=== PATIENT | female | born 1930 | race Hispanic/Latino ===

== ENCOUNTER 2017-11-27 00:36 | Observation (INO) | payer MEDICARE ==
[2017-11-27 00:48] VITALS: BMI 25.4
[2017-11-27] MEDS ORDERED: Morphine 2 mg/ml ISec IVP STA (01:33)
--- NOTE | 2017-11-27 01:35 | ED PDOC ---
Arrival/HPI - General Chief Complaint: Abdominal Pain Time Seen by Provider: 11/27/17 00:50 Historian: Patient - History of Present Illness Narrative History of Present Illness (Text): 11/27/17 01:30 Jim Gould is an 87 year old female, whose past medical history includes hypertension, who presents to the ED brought in by EMS accompanied by relative complaining of chest pain. Relative reports patient has been experiencing intermittent left-sided chest pain radiating down her left arm for the past 3 days. Patient denies any shortness of breath, abdominal pain, nausea, vomiting, headache, dizziness, or any other complaints. PMD: Dr. Moore Time/Duration: 1-3 hours Symptom Onset: Gradual Symptom Course: Unchanged, Intermittent Activities at Onset: Light Context: Home Past Medical History - Provider Review Nursing Documentation Reviewed: Yes - Infectious Disease Hx of Infectious Diseases: None - Tetanus Immunization Tetanus Immunization: Unknown - Cardiac Hx Hypertension: Yes - Pulmonary Hx Respiratory Disorders: No - Neurological Hx Neurological Disorder: No - HEENT Hx HEENT Disorder: No - Renal Hx Renal Disorder: No - Endocrine/Metabolic Hx Endocrine Disorders: No - Hematological/Oncological Hx Blood Disorders: No - Integumentary Hx Dermatological Disorder: No - Musculoskeletal/Rheumatological Hx Falls: Yes (Cannot recall how long ago) - Gastrointestinal Hx Gastrointestinal Disorders: No - Genitourinary/Gynecological Hx Genitourinary Disorders: No - Psychiatric Hx Psychophysiologic Disorder: No Hx Substance Use: No - Anesthesia Hx Anesthesia: No Family/Social History - Physician Review Nursing Documentation Reviewed: Yes Family/Social History: Unknown Family HX Smoking Status: Never Smoked Hx Alcohol Use: No Hx Substance Use: No Allergies/Home Meds Allergies/Adverse Reactions: Allergies No Known Allergies Allergy (Verified 06/11/15 21:17) Home Medications: Home Meds Medication Instructions Recorded Confirmed Aspirin [Aspirin Chewable] 81 mg PO DAILY 11/27/17 11/27/17 Metoprolol Tartrate [Lopressor] 100 mg PO BID 11/27/17 11/27/17 Multivitamin [Daily Olvin] 1 tab PO DAILY 11/27/17 11/27/17 Review of Systems - Physician Review All systems were reviewed & negative as marked: Yes - Review of Systems Constitutional: Normal. absent: Fevers Eyes: Normal ENT: Normal Respiratory: Normal. absent: SOB, Cough Cardiovascular: Chest Pain Gastrointestinal: Normal. absent: Abdominal Pain, Diarrhea, Nausea, Vomiting Genitourinary Female: Normal. absent: Dysuria, Frequency, Hematuria, Urine Output Changes Musculoskeletal: Normal. absent: Back Pain, Neck Pain Skin: Normal. absent: Rash Neurological: Normal. absent: Headache, Dizziness Endocrine: Normal Hemo/Lymphatic: Normal Psychiatric: Normal Physical Exam Vital Signs Reviewed: Yes Vital Signs Temp Pulse Resp BP Pulse Ox 11/27/17 00:47 98.3 F 78 18 147/75 100 Temperature: Afebrile Blood Pressure: Normal Pulse: Regular Respiratory Rate: Normal Appearance: Positive for: Well-Appearing, Non-Toxic, Comfortable Pain Distress: None Mental Status: Positive for: Alert and Oriented X 3 - Systems Exam Head: Present: Atraumatic, Normocephalic Pupils: Present: PERRL Extroacular Muscles: Present: EOMI Conjunctiva: Present: Normal Mouth: Present: Moist Mucous Membranes Neck: Present: Normal Range of Motion. No: Meningeal Signs, MIDLINE TENDERNESS , Paraspinal Tenderness Respiratory/Chest: Present: Clear to Auscultation, Good Air Exchange. No: Respiratory Distress, Accessory Muscle Use Cardiovascular: Present: Regular Rate and Rhythm, Normal S1, S2. No: Murmurs Abdomen: No: Tenderness, Distention, Peritoneal Signs Back: Present: Normal Inspection. No: CVA Tenderness, Midline Tenderness, Paraspinal Tenderness Upper Extremity: Present: Normal Inspection. No: Cyanosis, Edema Lower Extremity: Present: Normal Inspection. No: Edema Neurological: Present: GCS=15, CN II-XII Intact, Speech Normal Skin: Present: Warm, Dry, Normal Color. No: Rashes Psychiatric: Present: Alert, Oriented x 3, Normal Insight, Normal Concentration Medical Decision Making ED Course and Treatment: 11/27/17 01:30 Impression: 87 year old female c/o left-sided chest pain radiating to left shoulder. Plan: -- EKG -- CXR -- Labs, cardiac enzymes, lipase -- UA -- Aspirin -- Morphine -- Reassess and disposition Prior Visits: Notes and results from previous visits were reviewed. Progress Notes: Reviewed EKG, NSR at [address]-segment elevations or depressions, no T-wave inversions, normal intervals. 11/27/17 01:[address] Moore, who requests pt go to hospitalist service. 11/27/17 03:07 CXR reviewed, shows no acute processes. 11/27/17 03:43 Case discussed with medical officer psychiatry home security professional, who is aware and agrees with plan. 11/27/17 03:[address] Regalado, who is aware and agrees with plan. Accepts pt in to hospitalist service. Pt will go to Telemetry observation for chest pain. - Lab Interpretations Lab Results: 11/27/17 01:48 11/27/17 01:48 Lab Results 11/27/17 01:48: WBC 9.9 D, RBC 4.31, Hgb 12.4, Hct 36.7, MCV 85.2, MCH 28.8, MCHC 33.8, RDW 13.0, Plt Count 291, MPV 8.5 11/27/17 01:48: PT 10.1, INR 0.89, APTT 27.1 11/27/17 01:48: Sodium 143, Potassium 5.5 H, Chloride 105, Carbon Dioxide 22, Anion Gap 21 H, BUN 21, Creatinine 0.6 L, Est GFR ( Amer) > 60, Est GFR ( Non-Af Amer) > 60, Random Glucose 121 H, Calcium 9.6, Total Bilirubin 0.9, AST 42 H, ALT 33, Alkaline Phosphatase 64, Lactate Dehydrogenase 788 H, Total Creatine Kinase 62, Troponin I < 0.01, Total Protein 8.8 H, Albumin 4.7, Globulin 4.1, Albumin/Globulin Ratio 1.1, Lipase 352 H I have reviewed the lab results: Yes - RAD Interpretation Radiology Orders: 11/27/17 01:31 CHEST PORTABLE [RAD] Stat Sports Marketing Specialist: ED Physician - EKG Interpretation Interpreted by ED Physician: Yes Type: 12 lead EKG - Medication Orders Current Medication Orders: Discontinued Medications Aspirin (Aspirin) 325 mg PO ONCE STA Stop: 11/27/17 01:34 Last Admin: 11/27/17 01:52 Dose: 325 mg Morphine Sulfate (Morphine) 2 mg IVP STAT STA Stop: 11/27/17 01:34 Last Admin: 11/27/17 01:52 Dose: 2 mg MAR Pain Assessment Document 11/27/17 01:52 CNR (Rec: 11/27/17 01:52 CNR [id number]) Pain Reassessment Is this a pain reassessment? No IVP Administration Document 11/27/17 01:52 CNR (Rec: 11/27/17 01:52 CNR [id number]) Charges for Administration # of IVP Administrations 1 Sodium Polystyrene Sulfonate (Kayexalate Susp) 30 gm PO ONCE ONE Stop: 11/27/17 03:30 Last Admin: 11/27/17 03:42 Dose: 30 gm - Scribe Statement The provider has reviewed the documentation as recorded by the Scribalysha Kahn All medical record entries made by the Bellaibalysha were at my direction and personally dictated by me. I have reviewed the chart and agree that the record accurately reflects my personal performance of the history, physical exam, medical decision making, and the department course for this patient. I have also personally directed, reviewed, and agree with the discharge instructions and disposition. Disposition/Present on Arrival - Present on Arrival Any Indicators Present on Arrival: No History of DVT/PE: No History of Uncontrolled Diabetes: No Urinary Catheter: No History of Decub. Ulcer: No History Surgical Site Infection Following: None - Disposition Have Diagnosis and Disposition been Completed?: Yes Diagnosis: Chest pain Disposition: HOSPITALIZED Disposition Time: 03:42 Patient Plan: Observation Patient Problems: Current Active Problems Problem Status Onset Chest pain Acute Condition: STABLE Discharge Instructions (ExitCare): Chest Pain (ED) Referrals: Napoleon Moore MD [Primary Care Provider] - Follow up with primary Forms: [employer] (Syrian)
[2017-11-27 02:01] LABS: HEMOGLOBIN 12.4 g/dL (12.0-16.0); MEAN CELL VOLUME 85.2 fl (80.0-105.0); MEAN CORPUSCULAR HEMOGLOBIN 28.8 pg (25.0-35.0); MEAN CORPUSCULAR HGB CONC 33.8 g/dl (31.0-37.0); MEAN PLATELET VOLUME 8.5 fl (7.0-11.0); RBC 4.31 10^6/uL (3.5-6.1); WHITE BLOOD COUNT 9.9 10^3/ul (4.5-11.0)
[2017-11-27 02:10] LABS: CALCIUM 9.6 mg/dL (8.4-10.5); GFR NON-AFRICAN AMERICAN > 60; LIPASE 352 U/L (23-300)
[2017-11-27 02:11] LABS: INR 0.89; PARTIAL THROMBOPLASTIN TIME 27.1 Seconds (25.1-36.5); PROTHROMBIN TIME 10.1 SECONDS (9.4-12.5)
[2017-11-27 03:19] LABS: ALB/GLOB RATIO 1.1 (1.1-1.8); ALBUMIN 4.7 g/dL (3.0-4.8); ALT/SGPT 33 U/L (7-56); AST/SGOT 42 U/L (14-36); BLOOD UREA NITROGEN 21 mg/dL (7-21); TROPONIN I < 0.01 ng/mL
[2017-11-27] MEDS ORDERED: Sod Polystyrene Sulf 15 gm/60 ml Susp PO ONE (03:29)
--- NOTE | 2017-11-27 04:37 | CP.PCM.HP ---
<PoloSundeep - Last Filed: 11/27/17 05:24> History of Present Illness - History of Present Illness History of Present Illness: Sundeep Cuellar, PGY-1, Internal Medicine History and Physical for Dr. Regalado CC: chest pain 87 year old female with past medical history of pyelonephritis and hypertension presents with chest pain that started at 19:00 on 11/26. She was not able to describe the pain and described it as a "normal" pain. Pain radiates to the left shoulder. Patient reports constipation. She has one bowel movement every 2 to 3 days. Last bowel movement was 2 days ago. Patient denies nausea, vomiting, diaphoresis, and shortness of breath. Patient also denies dizziness, headache, fever, heart palpitations, abdominal pain, diarrhea, dysuria, hematuria, numbness/tingling, weakness. 12-point ROS was negative except for what was listed above. PMH: as listed above PSH: denies Allergies: NKDA FMHx: mother: CAD SHx: denies smoking, alcohol, recreational drug use. PMD: Dr. Moore Pharmacy: [facility] Insurance: Medicare Present on Admission - Present on Admission Any Indicators Present on Admission: No History of DVT/PE: No History of Uncontrolled Diabetes: No Review of Systems - Constitutional Constitutional: absent: Anorexia, Chills, Fever, Weakness - EENT Eyes: absent: Blurred Vision Ears: absent: Decreased Hearing Nose/Mouth/Throat: absent: Sore Throat - Cardiovascular Cardiovascular: Chest Pain, Chest Pain at Rest, Pain Radiating to Arm/Neck/Jaw ( arm). absent: Chest Pain with Activity, Diaphoresis, Dyspnea, Dyspnea on Exertion, Irregular Heart Rhythm, Palpitations - Respiratory Respiratory: absent: Cough, Dyspnea, Wheezing - Gastrointestinal Gastrointestinal: Constipation. absent: Abdominal Pain, Diarrhea, Nausea, Vomiting - Genitourinary Genitourinary: absent: Dysuria, Hematuria - Musculoskeletal Musculoskeletal: absent: Abnormal Gait, Back Pain - Neurological Neurological: absent: Numbness, Headaches, Tingling - Psychiatric Psychiatric: absent: Anxiety, Depression - Endocrine Endocrine: absent: Fatigue Past Patient History - Infectious Disease Hx of Infectious Diseases: None - Tetanus Immunizations Tetanus Immunization: Unknown - Past Medical History & Family History Past Medical History?: Yes - Past Social History Smoking Status: Never Smoked - CARDIAC Hx Hypertension: Yes - PULMONARY Hx Respiratory Disorders: No - NEUROLOGICAL Hx Neurological Disorder: No - HEENT Hx HEENT Problems: No - RENAL Hx Chronic Kidney Disease: No - ENDOCRINE/METABOLIC Hx Endocrine Disorders: No - HEMATOLOGICAL/ONCOLOGICAL Hx Blood Disorders: No - INTEGUMENTARY Hx Dermatological Problems: No - MUSCULOSKELETAL/RHEUMATOLOGICAL Hx Falls: Yes (Cannot recall how long ago) - GASTROINTESTINAL Hx Gastrointestinal Disorders: No - GENITOURINARY/GYNECOLOGICAL Hx Genitourinary Disorders: No - PSYCHIATRIC Hx Psychophysiologic Disorder: No Hx Substance Use: No - SURGICAL HISTORY Hx Surgeries: No - ANESTHESIA Hx Anesthesia: No Meds Allergies/Adverse Reactions: Allergies Allergy/AdvReac Type Severity Reaction Status Date / Time No Known Allergies Allergy Verified 06/11/15 21:17 Physical Exam - Constitutional Appears: Well, Non-toxic, No Acute Distress - Head Exam Head Exam: ATRAUMATIC, NORMAL INSPECTION, NORMOCEPHALIC - Eye Exam Eye Exam: EOMI, PERRL - ENT Exam ENT Exam: Mucous Membranes Moist Additional comments: edentulous - Respiratory Exam Respiratory Exam: Chest Wall Tenderness (left sided pain reproducible to palpation), Clear to Auscultation Bilateral, NORMAL BREATHING PATTERN - Cardiovascular Exam Cardiovascular Exam: REGULAR RHYTHM, RRR - GI/Abdominal Exam GI & Abdominal Exam: Normal Bowel Sounds, Soft. absent: Tenderness - Extremities Exam Extremities exam: Positive for: full ROM, normal inspection - Neurological Exam Neurological exam: Alert, CN II-XII Intact, Oriented x3 - Psychiatric Exam Psychiatric exam: Normal Affect, Normal Mood - Skin Skin Exam: Dry, Intact, Normal Color, Warm Results - Vital Signs Recent Vital Signs: Last Vital Signs Temp 98.3 F 11/27/17 00:47 Pulse 78 11/27/17 00:47 Resp 18 11/27/17 00:47 BP 147/75 11/27/17 00:47 Pulse Ox 100 11/27/17 00:47 - Labs Result Diagrams: 11/27/17 01:48 11/27/17 01:48 Labs: Laboratory Results - last 24 hr 11/27/17 11/27/17 11/27/17 01:48 01:48 01:48 WBC 9.9 D RBC 4.31 Hgb 12.4 Hct 36.7 MCV 85.2 MCH 28.8 MCHC 33.8 RDW 13.0 Plt Count 291 MPV 8.5 PT 10.1 INR 0.89 APTT 27.1 Sodium 143 Potassium 5.5 H Chloride 105 Carbon Dioxide 22 Anion Gap 21 H BUN 21 Creatinine 0.6 L Est GFR ( Amer) > 60 Est GFR (Non-Af Amer) > 60 Random Glucose 121 H Calcium 9.6 Total Bilirubin 0.9 AST 42 H ALT 33 Alkaline Phosphatase 64 Lactate Dehydrogenase 788 H Total Creatine Kinase 62 Troponin I < 0.01 Total Protein 8.8 H Albumin 4.7 Globulin 4.1 Albumin/Globulin Ratio 1.1 Lipase 352 H - Impressions Impression: Normal sinus rhythm Vent rate: 68 RI: 120 QRS: 66 QTc: 399 Assessment & Plan - Assessment and Plan (Free Text) Assessment: 87 year old female with past medical history of pyelonephritis and hypertension presents with chest pain that started at 19:00 on 11/26. She was not able to describe the pain and described it as a "normal" pain. Patient will be admitted for atypical chest pain 2/2 to costochondritis vs. ACS. Plan: Atypical chest pain 2/2 to costochondritis vs. ACS -EKG: normal sinus rhythm with HR: 68 -Troponin: <0.01. Follow up with two more troponins. -Repeat EKG in the AM. -Aspirin 81 mg daily. -Continue home metoprolol. Hyperkalemia -K: 5.5 -EKG: shows no peaked T waves -Kayexelate given in the ER -Continue to monitor. History of Hypertension -BP on presentation: 142/74. -Continue home metoprolol. -Continue to monitor. Elevated Lipase -Lipase: 352 -Due to mild elevation, and symptoms not artist's representative of pancreatitis, will hold off on CT of abdomen. -Continue to monitor. Repeat in AM. Elevated LDH -LDH: 788 -Continue to monitor. Repeat in AM. DVT prophylaxis: SCD GI prophylaxis: protonix 40 mg daily Patient seen and examined with Dr. Regalado. - Date & Time Date: 11/27/17 Time: 04:46 <Shi Regalado - Last Filed: 11/27/17 05:30> Results - Vital Signs Recent Vital Signs: Last Vital Signs Temp 98.3 F 11/27/17 00:47 Pulse 79 11/27/17 05:22 Resp 17 11/27/17 05:22 BP 132/72 11/27/17 05:22 Pulse Ox 99 11/27/17 05:22 - Labs Result Diagrams: 11/27/17 01:48 11/27/17 01:48 Attending/Attestation - Attestation I have personally seen and examined this patient.: Yes I have fully participated in the care of the patient.: Yes I have reviewed all pertinent clinical information: Yes Notes (Text): 11/27/17 05:25 Pt seen with resident by the bedside. Case discussed in detail. Agree with physical findings,assessment and plan of treatment.
[2017-11-27 05:06] LABS: URINE BILIRUBIN NEGATIVE (NEGATIVE); URINE BLOOD SMALL (NEGATIVE); URINE GLUCOSE (UA) NEGATIVE (NEGATIVE); URINE LEUKOCYTE ESTERASE LARGE Leu/uL (NEGATIVE); URINE PROTEIN NEGATIVE mg/dL (<30 mg/dL); URINE UROBILINOGEN 0.2 E.U./dL (<1 E.U./dL)
[2017-11-27 05:35] LABS: URINE APPEARANCE SL CLOUDY (CLEAR); URINE COLOR YELLOW (YELLOW)
[2017-11-27 05:37] LABS: URINE BACTERIA MOD (NEG); URINE EPITHELIAL CELLS 0 - 2 /hpf (0-5)
[2017-11-27 06:03] VITALS: O2SAT 98
[2017-11-27 08:25] LABS: BASO # 0.03 K/mm3 (0.0-2.0); BASO % 0.3 % (0.0-3.0); EOS # 0.1 (0.0-0.7); EOS % 0.7 % (1.5-5.0); GRAN # 6.06 (1.4-6.5); GRAN % 68.8 % (50.0-68.0); HEMOGLOBIN 13.1 g/dL (12.0-16.0); LYMPH # 2.2 (1.2-3.4); LYMPH % 24.8 % (22.0-35.0); MEAN CELL VOLUME 84.5 fl (80.0-105.0); MEAN CORPUSCULAR HEMOGLOBIN 28.5 pg (25.0-35.0); MEAN CORPUSCULAR HGB CONC 33.8 g/dl (31.0-37.0); MEAN PLATELET VOLUME 8.5 fl (7.0-11.0); MONO # 0.5 (0.1-0.6); MONO % 5.4 % (1.0-6.0); RBC 4.59 10^6/uL (3.5-6.1); RED CELL DISTRIBUTION WIDTH 13.2 % (11.5-14.5); WHITE BLOOD COUNT 8.8 10^3/ul (4.5-11.0)
[2017-11-27 08:39] LABS: ALB/GLOB RATIO 1.2 (1.1-1.8); ALBUMIN 4.6 g/dL (3.0-4.8); ALT/SGPT 44 U/L (7-56); AST/SGOT 33 U/L (14-36); BLOOD UREA NITROGEN 19 mg/dL (7-21); CALCIUM 9.9 mg/dL (8.4-10.5); GFR NON-AFRICAN AMERICAN > 60; HDL CHOLESTEROL 41 mg/dL (29-60); LIPASE 151 U/L (23-300)
[2017-11-27 08:47] LABS: LDL CHOLESTEROL 186 mg/dL (0-129)
[2017-11-27] MEDS ORDERED: Multivitamin Therapeutic Tab PO SCH (10:00)
--- NOTE | 2017-11-27 10:33 | RAD ---
Date of service: 11/27/2017 HISTORY: Chest pain COMPARISON: No prior. FINDINGS: LUNGS: The lungs are well inflated and clear. PLEURA: No significant pleural effusion identified, no pneumothorax apparent. CARDIOVASCULAR: Normal. OSSEOUS STRUCTURES: No significant abnormalities. VISUALIZED UPPER ABDOMEN: Normal. OTHER FINDINGS: None. IMPRESSION: No active pulmonary disease.
--- NOTE | 2017-11-27 10:56 | CP.PCM.CON ---
History of Present Illness - History of Present Illness History of Present Illness: Awake,Alert,denies chest pain now Reason for consultation: Cardiac evaluation of chest pain radiating to left arm. History of hypertension and pyelonephritis Brief history of present illness: An 87 year old female who came in to the ER due to chestp ain radiating to left arm started yesterday. Denies shortness of breath. Complaints of constipation. History of hypertension and pyelonephritis/ urinary tract infection. Denies any other medical problems Seen and examined by me and Dr. Ceron Review of Systems - Review of Systems All systems: reviewed and no additional remarkable complaints except Review of Systems: per HPI Past Patient History - Infectious Disease Hx of Infectious Diseases: None - Tetanus Immunizations Tetanus Immunization: Unknown - Past Medical History & Family History Past Medical History?: Yes - Past Social History Smoking Status: Never Smoked - CARDIAC Hx Hypertension: Yes - PULMONARY Hx Respiratory Disorders: No - NEUROLOGICAL Hx Neurological Disorder: No - HEENT Hx HEENT Problems: No - RENAL Hx Chronic Kidney Disease: No - ENDOCRINE/METABOLIC Hx Endocrine Disorders: No - HEMATOLOGICAL/ONCOLOGICAL Hx Blood Disorders: No - INTEGUMENTARY Hx Dermatological Problems: No - MUSCULOSKELETAL/RHEUMATOLOGICAL Hx Falls: No (does not have a fall recently) - GASTROINTESTINAL Hx Gastrointestinal Disorders: No - GENITOURINARY/GYNECOLOGICAL Hx Genitourinary Disorders: No Hx Urinary Tract Infection: Yes Other/Comment: pyelonephritis - PSYCHIATRIC Hx Psychophysiologic Disorder: No - SURGICAL HISTORY Hx Surgeries: No - ANESTHESIA Hx Anesthesia: No Meds Allergies/Adverse Reactions: Allergies Allergy/AdvReac Type Severity Reaction Status Date / Time No Known Allergies Allergy Verified 06/11/15 21:17 - Medications Medications: Current Medications Aspirin (Aspirin Chewable) 81 mg PO DAILY [facility] Last Admin: 11/27/17 09:02 Dose: 81 mg Metoprolol Tartrate (Lopressor) 100 mg PO BRKDIN [facility] Last Admin: 11/27/17 09:01 Dose: 100 mg Multivitamins (Thera Tab) 1 tab PO DAILY [facility] Last Admin: 11/27/17 09:02 Dose: 1 tab Physical Exam - Constitutional Appears: No Acute Distress - Eye Exam Eye Exam: Normal appearance - ENT Exam ENT Exam: Mucous Membranes Moist - Respiratory Exam Respiratory Exam: Clear to Auscultation Bilateral, NORMAL BREATHING PATTERN - Cardiovascular Exam Cardiovascular Exam: REGULAR RHYTHM, +S1, +S2 - GI/Abdominal Exam GI & Abdominal Exam: Normal Bowel Sounds, Soft - Extremities Exam Extremities exam: Positive for: normal capillary refill - Neurological Exam Neurological exam: Alert, Oriented x3 - Psychiatric Exam Psychiatric exam: Normal Affect - Skin Skin Exam: Intact, Warm Results - Vital Signs Recent Vital Signs: Last Vital Signs Temp 97.5 F L 11/27/17 06:00 Pulse 65 11/27/17 10:00 Resp 20 11/27/17 06:00 BP 114/62 11/27/17 09:01 Pulse Ox 98 11/27/17 06:00 - Labs Result Diagrams: 11/27/17 08:00 11/27/17 08:00 Labs: Laboratory Results - last 24 hr 11/27/17 11/27/17 11/27/17 03:58 08:00 08:00 WBC 8.8 RBC 4.59 Hgb 13.1 Hct 38.8 MCV 84.5 MCH 28.5 MCHC 33.8 RDW 13.2 Plt Count 257 MPV 8.5 Gran % 68.8 H Lymph % (Auto) 24.8 [place] % (Auto) 5.4 Eos % (Auto) 0.7 L Baso % (Auto) 0.3 Gran # 6.06 Lymph # (Auto) 2.2 [place] # (Auto) 0.5 Eos # (Auto) 0.1 Baso # (Auto) 0.03 Sodium Potassium Chloride Carbon Dioxide Anion Gap BUN Creatinine Est GFR ( Amer) Est GFR (Non-Af Amer) Random Glucose Calcium Phosphorus Magnesium Total Bilirubin AST ALT Alkaline Phosphatase Lactate Dehydrogenase Total Protein Albumin Globulin Albumin/Globulin Ratio Triglycerides Cholesterol LDL Cholesterol Direct HDL Cholesterol Lipase TSH 3rd Generation 2.38 Urine Color Yellow Urine Appearance Sl cloudy Urine pH 6.0 Ur Specific [employer] 1.020 Urine Protein Negative Urine Glucose (UA) Negative Urine Ketones Negative Urine Blood Small H Urine Nitrate Negative Urine Bilirubin Negative Urine Urobilinogen 0.2 Ur Leukocyte Esterase Large H Urine RBC 1 - 3 Urine WBC 2 - 5 Ur Epithelial Cells 0 - 2 Urine Bacteria Mod 11/27/17 08:00 WBC RBC Hgb Hct MCV MCH MCHC RDW Plt Count MPV Gran % Lymph % (Auto) [place] % (Auto) Eos % (Auto) Baso % (Auto) Gran # Lymph # (Auto) [place] # (Auto) Eos # (Auto) Baso # (Auto) Sodium 144 Potassium 3.9 Chloride 107 Carbon Dioxide 23 Anion Gap 19 BUN 19 Creatinine 0.6 L Est GFR ( Amer) > 60 Est GFR (Non-Af Amer) > 60 Random Glucose 124 H Calcium 9.9 Phosphorus 3.4 Magnesium 2.2 Total Bilirubin 0.5 AST 33 ALT 44 Alkaline Phosphatase 69 Lactate Dehydrogenase 450 Total Protein 8.4 H Albumin 4.6 Globulin 3.8 Albumin/Globulin Ratio 1.2 Triglycerides 338 H Cholesterol 296 H LDL Cholesterol Direct 186 H HDL Cholesterol 41 Lipase 151 TSH 3rd Generation Urine Color Urine Appearance Urine pH Ur Specific [employer] Urine Protein Urine Glucose (UA) Urine Ketones Urine Blood Urine Nitrate Urine Bilirubin Urine Urobilinogen Ur Leukocyte Esterase Urine RBC Urine WBC Ur Epithelial Cells Urine Bacteria Assessment & Plan - Assessment and Plan (Free Text) Assessment: An 87 year old female who came in to the ER due to chestp ain radiating to left arm started yesterday. Denies shortness of breath. Complaints of constipation. History of hypertension and pyelonephritis/urinary tract infection. Denies any other medical problems. Denies chest pain now. Troponin normal,Chest X ray normal,EKG normal sinus rhythm.no ischemia,No previous cardiac work up At [facility]. Atypical chest pain, no evidence of ischemia. Plan: Denies chest pain pain Atypical chest pain No evidence of ischemia Hear rate and blood pressure controlled Continue ASA 81 mg daily,Lopressor 100 mg BID Out patient ECHO and Stress Test Continue current treatment Continue current medications Further recommendations during hospital course Will follow up Plan and treatment discussed with Dr. Ceron Thank you Dr. Bagley for the opportunity in taking care of Ms. Jim Gould - Date & Time Date: 11/27/17 Time: 11:20
[2017-11-27 11:54] VITALS: BP 127/60; RESP 21; TEMP 98.2
--- NOTE | 2017-11-27 12:27 | CARD ---
APPROVED REPORT Date of service: 11/27/2017 EKG Measurement Heart [id number] <Conclusion> Sinus bradycardia Otherwise normal ECG
--- NOTE | 2017-11-27 12:52 | CARD ---
APPROVED REPORT Date of service: 11/27/2017 EKG Measurement Heart [id number] <Conclusion> Normal sinus rhythm Normal ECG
--- NOTE | 2017-11-27 14:40 | CP.PCM.DIS ---
<Lewis Elaine - Last Filed: 11/27/17 14:33> Provider - Provider Date of Admission: 11/27/17 03:47 Attending physician: Monico Bagley MD Primary care physician: Napoleon Moore MD Consults: licensed prosthetist: Dr Ceron Time Spent in preparation of Discharge (in minutes): 34 Diagnosis - Discharge Diagnosis (1) Chest pain Status: Resolved Priority: High Hospital Course - Lab Results Lab Results: Most Recent Lab Values WBC 8.8 10^3/ul (4.5-11.0) 11/27/17 08:00 RBC 4.59 10^6/uL (3.5-6.1) 11/27/17 08:00 Hgb 13.1 g/dL (12.0-16.0) 11/27/17 08:00 Hct 38.8 % (36.0-48.0) 11/27/17 08:00 MCV 84.5 fl (80.0-105.0) 11/27/17 08:00 MCH 28.5 pg (25.0-35.0) 11/27/17 08:00 MCHC 33.8 g/dl (31.0-37.0) 11/27/17 08:00 RDW 13.2 % (11.5-14.5) 11/27/17 08:00 Plt Count 257 10^3/uL (120.0-450.0) 11/27/17 08:00 MPV 8.5 fl (7.0-11.0) 11/27/17 08:00 Gran % 68.8 % (50.0-68.0) H 11/27/17 08:00 Lymph % (Auto) 24.8 % (22.0-35.0) 11/27/17 08:00 Andrews % (Auto) 5.4 % (1.0-6.0) 11/27/17 08:00 Eos % (Auto) 0.7 % (1.5-5.0) L 11/27/17 08:00 Baso % (Auto) 0.3 % (0.0-3.0) 11/27/17 08:00 Gran # 6.06 (1.4-6.5) 11/27/17 08:00 Lymph # (Auto) 2.2 (1.2-3.4) 11/27/17 08:00 Andrews # (Auto) 0.5 (0.1-0.6) 11/27/17 08:00 Eos # (Auto) 0.1 (0.0-0.7) 11/27/17 08:00 Baso # (Auto) 0.03 K/mm3 (0.0-2.0) 11/27/17 08:00 PT 10.1 SECONDS (9.4-12.5) 11/27/17 01:48 INR 0.89 11/27/17 01:48 APTT 27.1 Seconds (25.1-36.5) 11/27/17 01:48 Sodium 144 mmol/L (132-148) 11/27/17 08:00 Potassium 3.9 mmol/L (3.6-5.0) 11/27/17 08:00 Chloride 107 mmol/L (98-107) 11/27/17 08:00 Carbon Dioxide 23 mmol/L (21-33) 11/27/17 08:00 Anion Gap 19 (10-20) 11/27/17 08:00 BUN 19 mg/dL (7-21) 11/27/17 08:00 Creatinine 0.6 mg/dl (0.7-1.2) L 11/27/17 08:00 Est GFR ( Amer) > 60 11/27/17 08:00 Est GFR (Non-Af Amer) > 60 11/27/17 08:00 Random Glucose 124 mg/dL (70-110) H 11/27/17 08:00 Calcium 9.9 mg/dL (8.4-10.5) 11/27/17 08:00 Phosphorus 3.4 mg/dL (2.5-4.5) 11/27/17 08:00 Magnesium 2.2 mg/dL (1.7-2.2) 11/27/17 08:00 Total Bilirubin 0.5 mg/dL (0.2-1.3) 11/27/17 08:00 AST 33 U/L (14-36) 11/27/17 08:00 ALT 44 U/L (7-56) 11/27/17 08:00 Alkaline Phosphatase 69 U/L (38-126) 11/27/17 08:00 Lactate Dehydrogenase 450 U/L (333-699) 11/27/17 08:00 Total Creatine Kinase 62 U/L (35-230) 11/27/17 01:48 Troponin I < 0.01 ng/mL 11/27/17 01:48 Total Protein 8.4 g/dL (5.8-8.3) H 11/27/17 08:00 Albumin 4.6 g/dL (3.0-4.8) 11/27/17 08:00 Globulin 3.8 gm/dL 11/27/17 08:00 Albumin/Globulin Ratio 1.2 (1.1-1.8) 11/27/17 08:00 Triglycerides 338 mg/dL (35-160) H 11/27/17 08:00 Cholesterol 296 mg/dL (130-200) H 11/27/17 08:00 LDL Cholesterol Direct 186 mg/dL (0-129) H 11/27/17 08:00 HDL Cholesterol 41 mg/dL (29-60) 11/27/17 08:00 Lipase 151 U/L (23-300) 11/27/17 08:00 TSH 3rd Generation 2.38 mIU/mL (0.46-4.68) 11/27/17 08:00 Urine Color Yellow (YELLOW) 11/27/17 03:58 Urine Appearance Sl cloudy (CLEAR) 11/27/17 03:58 Urine pH 6.0 (4.7-8.0) 11/27/17 03:58 Ur Specific Cerulean 1.020 (1.005-1.035) 11/27/17 03:58 Urine Protein Negative mg/dL (<30 mg/dL) 11/27/17 03:58 Urine Glucose (UA) Negative mg/dL (NEGATIVE) 11/27/17 03:58 Urine Ketones Negative mg/dL (NEGATIVE) 11/27/17 03:58 Urine Blood Small (NEGATIVE) H 11/27/17 03:58 Urine Nitrate Negative (NEGATIVE) 11/27/17 03:58 Urine Bilirubin Negative (NEGATIVE) 11/27/17 03:58 Urine Urobilinogen 0.2 E.U./dL (<1 E.U./dL) 11/27/17 03:58 Ur Leukocyte Esterase Large Angelo/uL (NEGATIVE) H 11/27/17 03:58 Urine RBC 1 - 3 /hpf (0-2) 11/27/17 03:58 Urine WBC 2 - 5 /hpf (0-6) 11/27/17 03:58 Ur Epithelial Cells 0 - 2 /hpf (0-5) 11/27/17 03:58 Urine Bacteria Mod (NEG) 11/27/17 03:58 - Hospital Course Hospital Course: CC: chest pain 87 year old female with past medical history of pyelonephritis and hypertension presents with chest pain that started at 19:00 on 11/26. She was not able to describe the pain and described it as a "normal" pain. Pain radiates to the left shoulder. Patient reports constipation. She has one bowel movement every 2 to 3 days. Last bowel movement was 2 days ago. Patient denies nausea, vomiting, diaphoresis, and shortness of breath. Patient also denies dizziness, headache, fever, heart palpitations, abdominal pain, diarrhea, dysuria, hematuria, numbness/tingling, weakness. 12-point ROS was negative except for what was listed above. PMH: as listed above PSH: denies Allergies: NKDA FMHx: mother: CAD SHx: denies smoking, alcohol, recreational drug use. PMD: Dr. Moore Pharmacy: [facility] Insurance: Medicare HOSPITAL COURSE: A cardiac etiology was investigated for this patient's atypical chest pain. Troponins x3 were negative and EKGs were normal with normal HR. Her chest pain had resolved shortly after admission. She was seen and evaluated by licensed prosthetist Dr Ceron - he has recommended an outpatient stress test and echocardiogram - this was endorsed to the patient and her daughter. Her home medications were continued - aspirin 81mg and metoprolol tartrate 100mg po bid. Her lipid panel showed an elevated LDL of 186 - given her advanced age of 87 a statin was not started - instead we advised to her to attempt lifestyle and diet changes and to follow-up with PMD and [employer] regarding this matter. Please see latest assessment and plan for more specifics on management: Assessment: 87 year old female with past medical history of pyelonephritis and hypertension presents with chest pain that started at 19:00 on 11/26. She was not able to describe the pain and described it as a "normal" pain. Patient will be admitted for atypical chest pain 2/2 to costochondritis vs. ACS. Plan: Atypical chest pain 2/2 to costochondritis vs. ACS -EKG: normal sinus rhythm with HR: 68 -Troponin: <0.01. Follow up with two more troponins. -Repeat EKG in the AM. -Aspirin 81 mg daily. -Continue home metoprolol. Hyperkalemia -K: 5.5 -EKG: shows no peaked T waves -Kayexelate given in the ER -Continue to monitor. History of Hypertension -BP on presentation: 142/74. -Continue home metoprolol. -Continue to monitor. Elevated Lipase -Lipase: 352 -Due to mild elevation, and symptoms not charter representative of pancreatitis, will hold off on CT of abdomen. -Continue to monitor. Repeat in AM. Elevated LDH -LDH: 788 -Continue to monitor. Repeat in AM. DVT prophylaxis: SCD GI prophylaxis: protonix 40 mg daily Discharge Exam - Head Exam Head Exam: ATRAUMATIC, NORMAL INSPECTION, NORMOCEPHALIC - Additional Findings Additional findings: - Constitutional Appears: Well, Non-toxic, No Acute Distress - Head Exam Head Exam: ATRAUMATIC, NORMAL INSPECTION, NORMOCEPHALIC - Eye Exam Eye Exam: EOMI, PERRL - ENT Exam ENT Exam: Mucous Membranes Moist Additional comments: edentulous - Respiratory Exam Respiratory Exam: Chest Wall Tenderness (left sided pain reproducible to palpation), Clear to Auscultation Bilateral, NORMAL BREATHING PATTERN - Cardiovascular Exam Cardiovascular Exam: REGULAR RHYTHM, RRR - GI/Abdominal Exam GI & Abdominal Exam: Normal Bowel Sounds, Soft. absent: Tenderness - Extremities Exam Extremities exam: Positive for: full ROM, normal inspection - Neurological Exam Neurological exam: Alert, CN II-XII Intact, Oriented x3 - Psychiatric Exam Psychiatric exam: Normal Affect, Normal Mood - Skin Skin Exam: Dry, Intact, Normal Color, Warm Discharge Plan - Follow Up Plan Condition: STABLE Disposition: HOME/ ROUTINE Instructions: Preventing Falls in the Older Adult, High Blood Pressure (DC), Chest Pain (DC) Additional Instructions: You are stable for discharge. Please follow-up with licensed prosthetist Dr Ceron in his office within 1 week so he can schedule you for a stress test AND echocardiogram of your heart. His information has been provided. Your LDL cholesterol was high, please attempt to make lifestyle and diet changes to decrease your cholesterol level. You can do this by exercise (such as 30 minutes of walking every other day) and eating less fatty/fried foods. If your cholesterol remains high, your licensed prosthetist or primary medical doctor might suggest starting a new medication to treat the high cholesterol. Please follow-up with them regarding this matter. Please follow-up with your primary medical doctor, Dr Moore, within 1 week Please continue your home medications: aspirin 81mg 1 tablet once a day; metoprolol tartrate 100mg 1 tablet in the morning and 1 tablet in the evening; If symptoms return, please go to your nearest emergency department. Referrals: Napoleon Moore MD [Primary Care Provider] - Ron Ceron MD [Staff Provider] - <Monico Bagley - Last Filed: 11/27/17 15:12> Provider - Provider Date of Admission: 11/27/17 03:47 Attending physician: Monico Bagley MD Primary care physician: Napoleon Moore MD Hospital Course - Lab Results Lab Results: Most Recent Lab Values WBC 8.8 10^3/ul (4.5-11.0) 11/27/17 08:00 RBC 4.59 10^6/uL (3.5-6.1) 11/27/17 08:00 Hgb 13.1 g/dL (12.0-16.0) 11/27/17 08:00 Hct 38.8 % (36.0-48.0) 11/27/17 08:00 MCV 84.5 fl (80.0-105.0) 11/27/17 08:00 MCH 28.5 pg (25.0-35.0) 11/27/17 08:00 MCHC 33.8 g/dl (31.0-37.0) 11/27/17 08:00 RDW 13.2 % (11.5-14.5) 11/27/17 08:00 Plt Count 257 10^3/uL (120.0-450.0) 11/27/17 08:00 MPV 8.5 fl (7.0-11.0) 11/27/17 08:00 Gran % 68.8 % (50.0-68.0) H 11/27/17 08:00 Lymph % (Auto) 24.8 % (22.0-35.0) 11/27/17 08:00 Andrews % (Auto) 5.4 % (1.0-6.0) 11/27/17 08:00 Eos % (Auto) 0.7 % (1.5-5.0) L 11/27/17 08:00 Baso % (Auto) 0.3 % (0.0-3.0) 11/27/17 08:00 Gran # 6.06 (1.4-6.5) 11/27/17 08:00 Lymph # (Auto) 2.2 (1.2-3.4) 11/27/17 08:00 Andrews # (Auto) 0.5 (0.1-0.6) 11/27/17 08:00 Eos # (Auto) 0.1 (0.0-0.7) 11/27/17 08:00 Baso # (Auto) 0.03 K/mm3 (0.0-2.0) 11/27/17 08:00 PT 10.1 SECONDS (9.4-12.5) 11/27/17 01:48 INR 0.89 11/27/17 01:48 APTT 27.1 Seconds (25.1-36.5) 11/27/17 01:48 Sodium 144 mmol/L (132-148) 11/27/17 08:00 Potassium 3.9 mmol/L (3.6-5.0) 11/27/17 08:00 Chloride 107 mmol/L (98-107) 11/27/17 08:00 Carbon Dioxide 23 mmol/L (21-33) 11/27/17 08:00 Anion Gap 19 (10-20) 11/27/17 08:00 BUN 19 mg/dL (7-21) 11/27/17 08:00 Creatinine 0.6 mg/dl (0.7-1.2) L 11/27/17 08:00 Est GFR ( Amer) > 60 11/27/17 08:00 Est GFR (Non-Af Amer) > 60 11/27/17 08:00 Random Glucose 124 mg/dL (70-110) H 11/27/17 08:00 Calcium 9.9 mg/dL (8.4-10.5) 11/27/17 08:00 Phosphorus 3.4 mg/dL (2.5-4.5) 11/27/17 08:00 Magnesium 2.2 mg/dL (1.7-2.2) 11/27/17 08:00 Total Bilirubin 0.5 mg/dL (0.2-1.3) 11/27/17 08:00 AST 33 U/L (14-36) 11/27/17 08:00 ALT 44 U/L (7-56) 11/27/17 08:00 Alkaline Phosphatase 69 U/L (38-126) 11/27/17 08:00 Lactate Dehydrogenase 450 U/L (333-699) 11/27/17 08:00 Total Creatine Kinase 62 U/L (35-230) 11/27/17 01:48 Troponin I < 0.01 ng/mL 11/27/17 01:48 Total Protein 8.4 g/dL (5.8-8.3) H 11/27/17 08:00 Albumin 4.6 g/dL (3.0-4.8) 11/27/17 08:00 Globulin 3.8 gm/dL 11/27/17 08:00 Albumin/Globulin Ratio 1.2 (1.1-1.8) 11/27/17 08:00 Triglycerides 338 mg/dL (35-160) H 11/27/17 08:00 Cholesterol 296 mg/dL (130-200) H 11/27/17 08:00 LDL Cholesterol Direct 186 mg/dL (0-129) H 11/27/17 08:00 HDL Cholesterol 41 mg/dL (29-60) 11/27/17 08:00 Lipase 151 U/L (23-300) 11/27/17 08:00 TSH 3rd Generation 2.38 mIU/mL (0.46-4.68) 11/27/17 08:00 Urine Color Yellow (YELLOW) 11/27/17 03:58 Urine Appearance Sl cloudy (CLEAR) 11/27/17 03:58 Urine pH 6.0 (4.7-8.0) 11/27/17 03:58 Ur Specific Cerulean 1.020 (1.005-1.035) 11/27/17 03:58 Urine Protein Negative mg/dL (<30 mg/dL) 11/27/17 03:58 Urine Glucose (UA) Negative mg/dL (NEGATIVE) 11/27/17 03:58 Urine Ketones Negative mg/dL (NEGATIVE) 11/27/17 03:58 Urine Blood Small (NEGATIVE) H 11/27/17 03:58 Urine Nitrate Negative (NEGATIVE) 11/27/17 03:58 Urine Bilirubin Negative (NEGATIVE) 11/27/17 03:58 Urine Urobilinogen 0.2 E.U./dL (<1 E.U./dL) 11/27/17 03:58 Ur Leukocyte Esterase Large Angelo/uL (NEGATIVE) H 11/27/17 03:58 Urine RBC 1 - 3 /hpf (0-2) 11/27/17 03:58 Urine WBC 2 - 5 /hpf (0-6) 11/27/17 03:58 Ur Epithelial Cells 0 - 2 /hpf (0-5) 11/27/17 03:58 Urine Bacteria Mod (NEG) 11/27/17 03:58 Attending/Attestation - Attestation I have personally seen and examined this patient.: Yes I have fully participated in the care of the patient.: Yes I have reviewed all pertinent clinical information, including history, physical exam and plan: Yes Notes (Text): 11/27/17 15:01 87 year old female with past medical history of hypertension who presented last night with complaint of chest pain. Serial cardiac enzymes were negative and ACS was ruled out. EKG showed no acute changes. This morning chest pain resolved. She was seen by cardiology who recommended outpatient stress test. She initially has hyperkalemia which resolved after dose of kayexalate. She has elevated LDL and was recommended for diet modifications. Patient is discharged home to follow up with pmd. Follow up with cardiology for outpatient echocardiogram and stress test. Counselled on low fat, low cholesterol diet; repeat lipid panel with pmd in 3-6 months. Monico Bagley MD Hospitalist.
[2017-11-27 15:51] VITALS: PULSE 68
== END 2017-11-27 16:44 | disposition home or self-care (01) ==
LOC: ED 00:36 → UNDOADMOB 03:47 → ERH 03:47 → UNDODISOB 04:55 → 2RSO 05:29
PROVIDERS: ADMIT Internal Medicine; ATTEND Internal Medicine
DX: R07.89 Other chest pain (principal); E87.5 Hyperkalemia; I10 Essential (primary) hypertension; K59.00 Constipation, unspecified; Z87.440 Personal history of urinary (tract) infections
CPT/HCPCS: 71045; 80053; 80061; 81001; 82550; 83615; 83690; 83735; 84100; 84443; 84484; 85025; 85027; 85610; 85730; 93005; 96374; 99285; G0378; J2270